=== PATIENT | male | born 2000 | race African-American/Black ===

== ENCOUNTER 2020-10-31 13:00 | Emergency (ER) | payer MEDICAID ==
[~2020-10-31] VITALS: Ht 177.8 cm; Wt 68.0 kg
[2020-10-31] MEDS ORDERED: LORazepam 2 MG/ML, 1ML ONE ×3 (13:10→15:28)
[2020-10-31] MEDS: LORazepam 2 MG/ML, 1ML IVPush PRN ×4 (13:18→15:30)
--- NOTE | 2020-10-31 13:26 | NUR ---
PATIENT BIB EMS WITH CHIEF C/O ALOC. PER EMS PATIENT WAS FOUND WANDERING BY THE SIDE OF THE ROAD BY SOME [employer], PATIENT TOLD THEM HE WAS TRYING TO GET BAVK TO STEAD. THEY STARTED DRIVING UP THAT WAY AND PATIENT BECAME DIAPHORETIC AND NON-VERBAL, CALLED EMS, THEY WERE ABLE TO GET A NAME FROM PATIENT. EKG EN ROUTE SHOWED SVT PER EMS WITH HR IN 180'S, RR 20-25 AND END TIDAL 30, O2 98% RA. PATIENT GIVBEN 5 VERSED IM BECAUSE PATIENT WAS RESISTING GETTING OUT OF CAR INTO AMBULANCE. UPON ASSESSMENT PATIENT ABLE TO STATE HIS NAME IS DESTINY, BUT NOT ANSWERING OTHER QUESTIONS, EYES OPEN AND PUPILS DILATED, PATIENT DIAPHORETIC, CONNECTED TO MONITORS, HR 149, OTHER VSS, PATIENT MOVING ARMS AROUND, SIDE RAILS UP X2.
[2020-10-31] MEDS ORDERED: SODIUM CHLORIDE 0.9% 1,000ML IVBOLUS ONE (13:30)
[2020-10-31] MEDS ORDERED: SODIUM CHLORIDE FLUSH 10ML SYR IVF ONE (13:30)
[2020-10-31 13:42] LABS: ALANINE AMINOTRANSFERASE 99 U/L (12-78); ALBUMIN 4.6 g/dL (3.4-5.0); ANION GAP 9 mmol/L (5-15); CALCIUM 9.9 mg/dL (8.5-10.1); CHLORIDE 112 mmol/L (98-107); CREATININE 1.24 mg/dL (0.7-1.3)
[2020-10-31 13:44] LABS: ALKALINE PHOSPHATASE 59 U/L (45-117); BILIRUBIN,TOTAL 0.7 mg/dL (0.2-1.0); TOTAL PROTEIN 7.9 g/dL (6.4-8.2)
[2020-10-31 13:45] LABS: BASOPHILS % (AUTO) 0 % (0-1); EOSINOPHILS % (AUTO) 0 % (1-7); LYMPHOCYTES % (AUTO) 12 % (22-44); MEAN CORPUSCULAR HEMOGLOBIN 32.2 pg (27.5-34.5); MEAN CORPUSCULAR HGB CONC 35.1 g/dL (33.2-36.2); MEAN PLATELET VOLUME 8.2 fL (7.4-10.4); MONOCYTES % (AUTO) 8 % (2-9); NEUTROPHILS % (AUTO) 80 % (42-75); PLATELET COUNT 242 x10^3/uL (130-400); RED BLOOD COUNT 5.15 x10^6/uL (4.38-5.82)
[2020-10-31 13:46] LABS: MD NO
--- NOTE | 2020-10-31 14:51 | NUR ---
URINE COLLECTED VIA STRAIGHT CATH, PATIENT TOLERATED WITHOUT DIFFICULTY. CONNECTED TO MONITOR, HR 120-125, OTHER VSS, PATIENT MUMBLING SOME WORDS, STILL NOT RESPONDING TO QUESTIONS, EYES OPEN, NADN, SIDE RAILS UP X2.
[2020-10-31 15:09] LABS: AMPHETAMINE SCREEN, URINE Positive (Negative); BARBITURATE SCREEN, URINE Negative (Negative); BENZODIAZEPINE SCREEN, URINE Positive (Negative); CANNABINOID SCREEN, URINE Positive (Negative); COCAINE SCREEN, URINE Negative (Negative); METHADONE SCREEN, URINE Negative (Negative); OPIATE SCREEN, URINE Negative (Negative)
--- NOTE | 2020-10-31 15:31 | NUR ---
PATIENT MEDICATED PER [facility], CONNECTED TO MONITOR, HR 130, OTHER VSS, PATIENT NOT ANSWERING QUESTIONS, EYES OPEN, MOVING HANDS AROUND, MUMBLING OCCASSIONALLY, SIDE RAILS UP X2.
--- NOTE | 2020-10-31 16:35 | NUR ---
PATIENT RESTING IN GURNEY WITH EYES CLOSED, RESP EVEN AND UNLABORED, CONNECTED TO MONITOR, VSS, SIDE RAILS UP X2. PATIENT MTF.
--- NOTE | 2020-10-31 17:54 | NUR ---
PATIENT RESTING IN GURNEY WITH EYES CLOSED, RESP EVEN AND UNLABORED, PATIENT NOW 98% ON RA, HR DOWN TO 98-100, OTHER VSS, SIDE RAILS UP X2. PATIENT MTF.
--- NOTE | 2020-10-31 18:51 | NUR ---
REPORT FROM [facility], TRANSFER OF CARE AT THIS TIME.
[2020-10-31 19:18] VITALS: BP 136/92
--- NOTE | 2020-10-31 19:19 | NUR ---
Patient is resting comfortably in bed. Bed in lowest, rails engaged, call light on lap. Vital Signs within normal limits. WCTM.
--- NOTE | 2020-10-31 20:12 | NUR ---
PT AMBULATING IN HALLWAY WITH HAND IN BOXERS REQUESTING NEW BOXERS AND SNACKS AND WATER, PT ESCORTED BACK TO BED. UNABLE TO SAY HIS DC PLAN.
--- NOTE | 2020-10-31 20:12 | NUR ---
ERP TO BEDSIDE FOR EVAL
--- NOTE | 2020-10-31 21:05 | NUR ---
PT OUT OF ROOM UNABLE TO STATE WHERE HE IS GOING AND UNABLE TO UNLOCK PHONE TO CALL FRIEND PLANNED.
--- NOTE | 2020-10-31 21:55 | NUR ---
PT ELOPED FROM ED AT THIS TIME
--- NOTE | 2020-10-31 21:56 | NUR ---
THROUGHPUT: PT RAN OUT OF ED STEADY ON FEET PWD, LEFT CELLPHONE IN ROOM- LABELED & GIVEN TO DIRECTOR CLINICAL APPLICATIONSDOROTHEA GO, ERP DR WHITTEN AWARE.
== END 2020-10-31 21:58 | disposition left against medical advice (07) ==
LOC: EDBD 13:00 → ED 15:16
DX: T43.621A Poisoning by amphetamines, accidental (unintentional), initial encounter (principal); F15.129 Other stimulant abuse with intoxication, unspecified; R00.0 Tachycardia, unspecified; Y92.9 Unspecified place or not applicable
CPT/HCPCS: 36415; 71045; 80053; 80307; 80320; 85025; 93005; 96361; 96374; 96376; 99285; J2060; J7030; G0480